=== PATIENT | female | born 1950 | race Hispanic/Latino ===

== ENCOUNTER → 2019-06-28 | Outpatient (CLI) | payer OTHER, MEDICARE ==
[~2019-06-28] MED LIST: ASPI-555 PO; DOXE3TAB3 PO; EXEN10PE3 SQ; FENO130C8 PO; GLIP1TAB6 PO; INSLAN SQ; SIMV40TA59 PO; SITA50TA PO; VALS160T29 PO
== END | disposition home or self-care (01) ==
LOC: SHCH 10:23
PROVIDERS: ATTEND Internal Medicine Cardiovascular Disease
DX: I11.9 Hypertensive heart disease without heart failure (principal); I08.3 Combined rheumatic disorders of mitral, aortic and tricuspid valves; I25.810 Atherosclerosis of coronary artery bypass graft(s) without angina pectoris
CPT/HCPCS: 93306

== ENCOUNTER → 2020-01-04 | Outpatient (CLI) | payer OTHER, MEDICARE ==
[~2020-01-04] MED LIST changes: +FENO130C13 PO; -FENO130C8 PO
[2020-01-04] MEDS: REGADENOSON 0.4 MG/5 ML PF SYG IVP SCH (13:48)
== END | disposition home or self-care (01) ==
LOC: SHCH 07:40
PROVIDERS: ATTEND Internal Medicine Cardiovascular Disease
DX: R06.00 Dyspnea, unspecified (principal); I20.9 Angina pectoris, unspecified
CPT/HCPCS: 78452; 93017; 96374; A9500 ×2; J2785

== ENCOUNTER → 2020-01-31 | Outpatient (CLI) | payer OTHER, MEDICARE | END | disposition home or self-care (01) | LOC: SHCH 14:21 | PROVIDERS: ATTEND Internal Medicine Cardiovascular Disease | DX: R06.00 Dyspnea, unspecified (principal) | CPT/HCPCS: 93306 ==

== ENCOUNTER → 2021-05-16 | Outpatient (CLI) | payer OTHER, MEDICARE ==
[~2021-05-16] MED LIST changes: -ASPI-555 PO; +ASPI-556 PO; -FENO130C13 PO; +FENO130C14 PO
== END | disposition home or self-care (01) ==
LOC: RAH 07:40
PROVIDERS: ATTEND Internal Medicine
DX: R76.9 Abnormal immunological finding in serum, unspecified (principal); K76.0 Fatty (change of) liver, not elsewhere classified
CPT/HCPCS: 76700

== ENCOUNTER → 2021-05-29 | Outpatient (CLI) | payer OTHER, MEDICARE | END | disposition home or self-care (01) | LOC: SHCH 14:50 | PROVIDERS: ATTEND Internal Medicine Cardiovascular Disease | DX: I48.0 Paroxysmal atrial fibrillation (principal) | CPT/HCPCS: 93306 ==

== ENCOUNTER → 2021-11-20 | Outpatient (CLI) | payer OTHER, MEDICARE | END | disposition home or self-care (01) | LOC: RAH 08:27 | PROVIDERS: ATTEND Internal Medicine Gastroenterology | DX: K74.60 Unspecified cirrhosis of liver (principal); I70.0 Atherosclerosis of aorta | CPT/HCPCS: 71046; 76700; 93975 ==

== ENCOUNTER → 2021-11-20 | Outpatient (CLI) | payer OTHER, MEDICARE | END | disposition home or self-care (01) | LOC: OIH 11:11 | PROVIDERS: ATTEND Internal Medicine Gastroenterology | DX: K74.60 Unspecified cirrhosis of liver (principal); I70.0 Atherosclerosis of aorta | CPT/HCPCS: 71046 ==